=== PATIENT | female | born 1990 | race Two or more races ===

== ENCOUNTER 2021-08-08 02:46 | Observation (INO) | payer OTHER ==
[~2021-08-08] VITALS: Ht 157.5 cm; Wt 56.7 kg
[2021-08-08 03:53] LABS: Urine WBC None Seen /hpf (0 - 5)
[2021-08-08 04:09] LABS: Alcohol, Urine < 3.0 mg/dL (0-10); Amphetamine Screen, Urine NEGATIVE (NEGATIVE); Barbiturate Scree,Urine NEGATIVE (NEGATIVE); Benzodiazephine Screen, Urine NEGATIVE (NEGATIVE); Cannabinoid Screen, Urine NEGATIVE (NEGATIVE); Cocaine Screen, Urine NEGATIVE (NEGATIVE); Opiate Scree,Urine NEGATIVE (NEGATIVE); Phencyclidine Screen, Urine NEGATIVE (NEGATIVE)
[2021-08-08 04:14] LABS: Urine Bacteria FEW /hpf (None Seen); Urine Blood Negative /uL (Negative); Urine Mucus FEW (None Seen); Urine Specific Gravity 1.016 (1.001-1.035)
[2021-08-08] MEDS ORDERED: PREN-96 PO (04:23)
[2021-08-08] MEDS ORDERED: NITR-87 PO (04:24)
== END 2021-08-08 04:35 | disposition home or self-care (01) ==
LOC: LDRP 02:46
PROVIDERS: ADMIT Obstetrics & Gynecology; ATTEND Obstetrics & Gynecology
DX: O60.03 Preterm labor without delivery, third trimester (principal); O62.9 Abnormality of forces of labor, unspecified; Z3A.30 30 weeks gestation of pregnancy; Z79.899 Other long term (current) drug therapy
CPT/HCPCS: 59025; 80307; 81001; 81002; 94760; G0378; G0379